=== PATIENT | female | born 1960 | race Caucasian/White ===

== ENCOUNTER → 2024-03-14 17:11 | Outpatient (REF) | payer OTHER, SELFPAY | LOC: HWWDC 17:11 | PROVIDERS: ATTENDING PHYSICIAN Physician Assistant | DX: Z12.31 Encounter for screening mammogram for malignant neoplasm of breast (principal) | CPT/HCPCS: 77063; 77067 ==

== ENCOUNTER → 2025-06-13 10:59 | Outpatient (REF) | payer BC, SELFPAY | LOC: HWWDC 10:59 | PROVIDERS: ATTENDING PHYSICIAN Physician Assistant | DX: Z12.31 Encounter for screening mammogram for malignant neoplasm of breast (principal) | CPT/HCPCS: 77063; 77067 ==

== ENCOUNTER → 2025-06-27 08:32 | Outpatient (REF) | payer BC, SELFPAY | LOC: WDC 08:32 | PROVIDERS: ATTENDING PHYSICIAN Physician Assistant | DX: R92.8 Other abnormal and inconclusive findings on diagnostic imaging of breast (principal) | CPT/HCPCS: 76642 ==

== ENCOUNTER 2025-07-21 21:27 | Emergency (ER) | payer BC, SELFPAY ==
[2025-07-21 21:29] VITALS: BP 185/98
[2025-07-21 21:54] LABS: Hematocrit 41.1 % (37.0-47.0); Hemoglobin 13.6 g/dL (12.0-16.0); Mean Corp Hgb Conc. 33.1 g/dL (33.0-37.0); Mean Corpuscular Volume 93.2 fL (81.0-99.0); Nucleated Red Blood Cells % 0 %; Platelet Count 270 10^3/uL (130-400); Red Cell Dist. Width 12.7 % (11.5-14.5)
[2025-07-21 22:05] LABS: APTT 28.8 Sec (23.4-35.0)
[2025-07-21 22:07] LABS: ALT (SGPT) 51 U/L (0-35); AST (SGOT) 35 U/L (14-36); Albumin 4.4 g/dl (3.5-5.0); Alkaline Phosphatase 136 U/L (38-126); Blood Urea Nitrogen 13 mg/dl (7-17); Calcium 9.2 mg/dl (8.4-10.2); Carbon Dioxide 29 mmol/L (22-30); Chloride 107 mmol/L (98-107); Glucose 154 mg/dl (70-99); Potassium 4.2 mmol/L (3.5-5.1); Sodium 141 mmol/L (135-145); Total Protein 7.4 g/dl (6.3-8.2); eGFR > 60.00
[2025-07-21 22:19] LABS: Troponin I < 0.012 ng/ml
[2025-07-21 23:29] VITALS: BP 167/92
--- NOTE | 2025-07-22 00:15 | ED.GENMED ---
ED Provider Triage
<Manuel Orosco MD, Resident - Last Filed: 07/22/25 02:30>
-
Patient seen by provider in Triage?: Seen in Triage
History of Present Illness
<Manuel Orosco MD, Resident - Last Filed: 07/22/25 02:30>
General
Chief Complaint: Cardiac Symptoms
Source: patient and spouse
Exam Limitations: none
Time Seen by Provider: 07/21/25 23:50
History of Present Illness
History of Present Illness:
Dementia, patient is a 64-year-old female who presents for sudden throbbing pain that started in her sternal notch lasted 1 to 2 hours but gradually subsided before radiating to right trapezius muscle. Aggravated on deep breaths and lying back.
Relieved on leaning forward. No fever, chills, nausea, vomiting, difficulty swallowing, numbness, tingling, weakness of the extremities. Has a history of hypertension and hyperlipidemia. No previous history of COPD, cancer, smoking, heavy lifting.
Past History
<Manuel Orosco MD, Resident - Last Filed: 07/22/25 02:30>
Past History
ED Past Medical History: None
Social History
Tobacco: Non-smoker
Living: with family
Review of Systems
<Manuel Orosco MD, Resident - Last Filed: 07/22/25 02:30>
Review of Systems
All Other Systems: ROS reviewed and negative except as documented in HPI and ROS
Phy Exam
<Manuel Orosco MD, Resident - Last Filed: 07/22/25 02:30>
General Physical Exam
General Presentation: well appearing and no apparent distress
General Skin: warm
General Habitus: normal
General Mental: alert
Cardiovascular Exam
Cardiovascular Exam: regular rate/rhythm and no edema
Pulmonary Exam
Pulmonary Exam: lungs clear and no respiratory distress
Gastrointestinal Exam
Gastrointestinal Exam: normal bowel sounds, non tender, soft and non distended
Neurological Exam
Neurological Exam: alert and oriented x3
Musculoskeletal Exam
Musculoskeletal Exam: full ROM and other (Mild tenderness to palpation of the right shoulder blade/ trapezius area)
Skin Exam
Skin Exam: normal color, warm/dry and no rash
Scores
<Maria Teresa Witt, DO - Last Filed: 07/22/25 03:53>
Heart Score for Chest Pain Patients
STEMI patient?: No
History: Slightly or Non-Suspicious
ECG: Normal
Age: >45 - <65 years
Risk Factors: 1 or 2 Risk Factors
Troponin: </= Normal Limit
Heart Score for Chest Pain Patients: 2
Heart Score Risk: 2.5% MACE over next 6 weeks
Course
<Manuel Orosco MD, Resident - Last Filed: 07/22/25 02:30>
Orders/Labs/Results
Orders:
Orders
07/21/25 21:32
Electrocardiogram (*1) Urgent
Reason for Study: Chest Pain
07/21/25 21:33
EKG- Treatment ONCE
07/21/25 21:43
Complete Blood Count/With Diff Urgent
Comprehensive Metabolic Panel Urgent
PTT Urgent
Troponin I Urgent
07/22/25 00:20
Electrocardiogram (*1) Urgent
Reason for Study: Chest Pain
EKG- Treatment ONCE
07/22/25 00:35
D-Dimer Urgent
Troponin I Urgent
07/22/25 01:[address] [CT Chest PE Study] Urgent
Comment:
Reason For Exam: elevated dimer, chest pain
Abnormal Lab Results
07/21/25 07/22/25
21:43 00:35
Absolute Neuts (auto) 7.0 H 10^3/uL
(1.4-6.5)
Absolute Monos (auto) 0.9 H 10^3/uL
(0.1-0.6)
D-Dimer 0.73 H ug/mlFEU
(0.00-0.50)
Glucose 154 H mg/dl
(70-99)
ALT 51 H U/L
(0-35)
Alkaline Phosphatase 136 H U/L
(38-126)
07/21/25 21:43
07/21/25 21:43
Vital Signs
Initial and Last Documented VS:
Initial Vital Signs
Temp Pulse Resp BP Pulse Ox
98.0 F 87 20 185/98 98
07/21/25 21:29 07/21/25 21:29 07/21/25 21:29 07/21/25 21:29 07/21/25 21:29
Last Documented Vital Signs
Temp Pulse Resp BP Pulse Ox
98.0 F 76 15 154/85 95
07/21/25 21:29 07/22/25 02:30 07/22/25 02:30 07/22/25 02:00 07/22/25 02:30
<Maria Teresa Witt, DO - Last Filed: 07/22/25 03:53>
Orders/Labs/Results
Orders:
Orders
07/21/25 21:32
Electrocardiogram (*1) Urgent
Reason for Study: Chest Pain
07/21/25 21:33
EKG- Treatment ONCE
07/21/25 21:43
Complete Blood Count/With Diff Urgent
Comprehensive Metabolic Panel Urgent
PTT Urgent
Troponin I Urgent
07/22/25 00:20
Electrocardiogram (*1) Urgent
Reason for Study: Chest Pain
EKG- Treatment ONCE
07/22/25 00:35
D-Dimer Urgent
Troponin I Urgent
07/22/25 01:[address] [CT Chest PE Study] Urgent
Comment:
Reason For Exam: elevated dimer, chest pain
Abnormal Lab Results
07/21/25 07/22/25
21:43 00:35
Absolute Neuts (auto) 7.0 H 10^3/uL
(1.4-6.5)
Absolute Monos (auto) 0.9 H 10^3/uL
(0.1-0.6)
D-Dimer 0.73 H ug/mlFEU
(0.00-0.50)
Glucose 154 H mg/dl
(70-99)
ALT 51 H U/L
(0-35)
Alkaline Phosphatase 136 H U/L
(38-126)
07/21/25 21:43
07/21/25 21:43
Vital Signs
Initial and Last Documented VS:
Initial Vital Signs
Temp Pulse Resp BP Pulse Ox
98.0 F 87 20 185/98 98
07/21/25 21:29 07/21/25 21:29 07/21/25 21:29 07/21/25 21:29 07/21/25 21:29
Last Documented Vital Signs
Temp Pulse Resp BP Pulse Ox
98.0 F 76 15 154/85 95
07/21/25 21:29 07/22/25 02:30 07/22/25 02:30 07/22/25 02:00 07/22/25 02:30
<Manuel Orosco MD, Resident - Last Filed: 07/22/25 02:30>
MDM/Problems Addressed
Differential Diagnosis Includes:
ACS, GERD, pericarditis, Pleurisy, musculoskeletal, esophageal spasm
MDM/Problems Addressed:
Patient BP is 167/92 mmhg
- CBC unremarkable
- CMP shows elevated ALP (136) and ALT ( 51) but otherwise remarkable
- First troponin is <0.012, second is
- EKG unremarkable
- D dimer eleavted, will do PE chest study ( pending)
<Manuel Orosco MD, Resident - Last Filed: 07/22/25 02:30>
*Pulse Oximetry
SaO2: 95
Oxygen Mode of Delivery: Room air
Patient hypoxic: no
*Critical Care Note
Total Time (30-74mins, 75-104mins- exclusive of procedures): Not Applicable
<Maria Teresa Witt DO - Last Filed: 07/22/25 03:53>
*Radiology
Radiology exam reviewed: radiology read reviewed (CT of the chest/PE study is unremarkable. No evidence of PE nor dissection. Normal heart size. No pneumonia nor pulmonary edema.)
*EKG
Interpreted by ED Provider?: Yes
Interpretation: normal
Comparison EKG: no comparison EKG present
Rate: normal
Rhythm: sinus
[place]: normal axis
Interval: normal interval
QRS Pattern: normal QRS
Ischemia: no ischemia
*Nut Chopper Interpretation
Rate: normal
Interpretation: normal
Rhythm: sinus
ED Attending Note
<Manuel Orosco MD, Resident - Last Filed: 07/22/25 02:30>
-
Portions of this chart may have been created with voice recognition software.� Occasional wrong word or��sound alike� substitutions may have occurred due to the inherent limitations of voice recognition software.
<Maria Teresa Witt DO - Last Filed: 07/22/25 03:53>
ED Attending Note
Patient seen and examined by attending physician: Yes
I performed the substantive portion of visit, reviewed & personally made and approve the management plan that is documented in note by myself or CAITLIN.: Yes
ED Attending Note:
This is a 64-year-old woman with history of hypertension, hyperlipidemia who presents with somewhat abrupt onset of anterior lower neck discomfort that began around 8 PM tonight while folding laundry. Right anterior lower neck discomfort radiated
to her right clavicle region, worse with deep breath and also accompanied with frequent burping. No other associated symptoms, no nausea nor vomiting, no palpitations, no chest pain, no dizziness nor lightheadedness, no diaphoresis. No history of
similar episodes in the past.
She does mention that she ate a hotdog for dinner tonight which is unlike her; she generally avoids fatty or spicy foods. She denies abdominal nor back pain.
64-year-old woman appears her stated age, awake and alert, pleasant, appears in no acute distress.
Neck: Supple, nontender, no palpable tenderness. No adenopathy, no meningismus.
Heart is regular rate and rhythm. No murmur nor rub.
Lungs are clear to auscultation, respirations are easy nonlabored. No respiratory distress.
Abdomen is soft without appreciable tenderness. No palpable masses.
Extremities without clubbing or cyanosis no edema. Peripheral pulses are full and equal.
Skin is warm and dry, normal color. Good turgor.
Concern for acute GERD, ACS, pneumonia, other consideration is PE/dissection.
Moderate hypertension noted initially, has improved to 154/85.
Thus far labs are unremarkable. Negative troponin. Minimally elevated ALT and alkaline phosphatase but abdominal exam is soft, benign. Nothing to suggest acute biliary colic nor acute intra-abdominal process.
EKG is overall unremarkable, normal sinus rhythm, flattened T waves. No old EKGs to compare.
Will repeat EKG and troponin now. Will also check D-dimer. If D-dimer elevated we will plan for CT of the chest. If negative will check chest x-ray.
03:45
Repeat troponin remains negative. EKG similar and unchanged.
D-dimer mildly elevated thus CT of the chest obtained which is unremarkable. No evidence of PE, no dissection. Clear lung pineda save for minimal bilateral dependent atelectasis. There is no pleural effusion or pneumothorax.
I suspect patient's episode of acute anterior lower neck pain, right clavicular pain accompanied with burping was an element of GERD in nature.
Recommend she avoid spicy or fried foods. She may take [id number] Pepcid twice daily as needed if pain recurs.
Prompt follow-up with PCP for recheck.
Return precautions discussed.
Discharge Plan
Departure
Patient Disposition: Home (Routine Discharge)
Date of Disposition: 07/22/25
Time of Disposition: 03:49
Patient with high blood pressure during this ER visit?: No
Condition: Good
Discharge Problem:
Acute GERD w esophagitis
Instructions: Acid reflux and GERD in adults
Prescriptions:
No Action
calcium carbonate [Oyster Shell Calcium 500] 500 MG tablet
docosahexaenoic acid-epa 1 CAP capsule
1 cap PO
pediatric multivitamin no.17 [Animal Shapes] 1 EACH tablet,chewable
Coq10
200 mg PO DAILY
Lisinopril
10 mg PO DAILY
metronidazole 500 MG tablet
500 mg PO Q8 Qty: 18 0RF
levofloxacin 500 MG tablet
500 mg PO DAILY Qty: 6 0RF
Referrals:
Nat Hu PA-C [Family Provider, Family Practice] - Call in 1-3 days for appt
Interventions
Interventions:
*General Assessment Last Done: 07/21/25 21:29
ED- Pulmonary Assessment Last Done: 07/21/25 23:15
ED- Cardiac Assessment Last Done: 07/21/25 23:15
Discharge Date and Time
Print Language: ROMANIAN
[2025-07-22 00:36] VITALS: BP 179/92
[2025-07-22 01:00] VITALS: BP 147/77
[2025-07-22 01:14] LABS: Troponin I < 0.012 ng/ml
[2025-07-22 01:16] LABS: D-Dimer 0.73 ug/mlFEU (0.00-0.50)
[2025-07-22 02:00] VITALS: BP 154/85
== END 2025-07-22 04:35 | disposition home or self-care (01) ==
LOC: EMR 21:27
PROVIDERS: Emergency Medicine; EMERGENCY PHYSICIAN Emergency Medicine; FAMILY PHYSICIAN Physician Assistant
DX: K21.00 Gastro-esophageal reflux disease with esophagitis, without bleeding (principal); F03.90 Unspecified dementia, unspecified severity, without behavioral disturbance, psychotic disturbance, mood disturbance, and anxiety; I10 Essential (primary) hypertension; E78.5 Hyperlipidemia, unspecified
CPT/HCPCS: 99284; 71275; 80053; 84484; 85025; 85379; 85730; 93005; Q9967